=== PATIENT | female | born 1990 | race Caucasian/White ===

== ENCOUNTER 2017-11-20 16:45 | Emergency (ER) | payer MEDICAID ==
[~2017-11-20] VITALS: Ht 157.5 cm; Wt 80.3 kg
[2017-11-20 16:55] VITALS: Ht 157.5 cm; Wt 80.3 kg
[2017-11-20 17:39] LABS: BASOPHIL % 0.1 % (0-2); PLATELET COUNT 369 x10^3mcL (130-400); RED CELL DISTRIBUTION WIDTH 12.5 % (11.5-14.5)
[2017-11-20 17:42] LABS: CALCIUM 8.6 mg/dL (8.5-10.1); CARBON DIOXIDE 25.4 mmol/L (21-32); CHLORIDE SERUM 108 mmol/L (98-107); CREATININE SERUM 0.7 mg/dL (0.6-1.0); GFR1 > 60 mL/min; GLUCOSE SERUM 99 mg/dL (74-106); POTASSIUM SERUM 3.7 mmol/L (3.5-5.1); SODIUM SERUM 144 mmol/L (136-145)
[2017-11-20 17:46] LABS: ALBUMIN 3.9 g/dL (3.4-5.0); ALKALINE PHOSPHATASE 78 U/L (46-116); ALT/SGPT 21 U/L (14-59); AMYLASE 63 U/L (25-115); AST/SGOT 16 U/L (15-37); BILIRUBIN TOTAL 0.56 mg/dL (0.20-1.00); LIPASE 78 IU/L (73-393); TOTAL PROTEIN, SERUM 7.7 g/dL (6.4-8.2)
[2017-11-20 21:00] VITALS: BP 125/64
== END 2017-11-20 21:00 | disposition home or self-care (01) ==
LOC: ED 16:45
PROVIDERS: Specialist
DX: I88.0 Nonspecific mesenteric lymphadenitis (principal); G80.9 Cerebral palsy, unspecified; N83.209 Unspecified ovarian cyst, unspecified side
CPT/HCPCS: J1885; J2405; J3010; J7030